=== PATIENT | male | born 1985 | race Two or more races ===

== ENCOUNTER 2024-04-29 11:45 | Emergency (ER) | payer MEDICAID, OTHER ==
[~2024-04-29] VITALS: Ht 172.7 cm; Wt 101.1 kg
[2024-04-29 13:04] VITALS: BP 125/74; PULSE 77; RESP 16; TEMP 98.5; O2SAT 96
[2024-04-29] MEDS ORDERED: NAPR-746 PO (13:39)
== END 2024-04-29 13:58 | disposition home or self-care (01) ==
LOC: ER 11:51
DX: M23.91 Unspecified internal derangement of right knee (principal); W18.39XA Other fall on same level, initial encounter; Y93.89 Activity, other specified; Y92.89 Other specified places as the place of occurrence of the external cause; Y99.8 Other external cause status
CPT/HCPCS: 29530; 73562

== ENCOUNTER 2024-07-02 07:49 | Emergency (ER) | payer MEDICAID ==
[~2024-07-02] VITALS: Ht 172.7 cm; Wt 103.4 kg
[~2024-07-02 07:49] MED LIST: NAPR-746 PO
[2024-07-02 08:07] VITALS: BP 154/69; PULSE 87; RESP 16; TEMP 98.5; O2SAT 97
[2024-07-02] MEDS: cefTRIAXone 2GM/50ML D5W 50 ML IV ONE (08:54)
[2024-07-02 09:16] LABS: Basophils # (auto) 0 10 ^3/uL (0-0.2); Basophils % (auto) 0.6 % (0.0-2.0); Eosinophils # (auto) 0.2 10 ^3/uL (0-0.8); Eosinophils % (auto) 2.6 % (0.0-7.0); Hematocrit 43.6 % (41.0-53.0); Hemoglobin 15.4 g/dL (13.5-17.5); Lymphocytes # (auto) 1.5 10 ^3/uL (0.4-5.4); Lymphocytes % (auto) 18.7 % (10.0-50.0); Mean Corpuscular Hemoglobin 31.8 pg (28.0-32.0); Mean Corpuscular Hgb Conc. 35.4 g/dL (32.0-36.0); Mean Corpuscular Volume 89.7 fL (80.0-100.0); Monocytes # (auto) 0.7 10 ^3/uL (0-1.3); Monocytes % (auto) 9.4 % (0.0-12.0); Neutrophils # (auto) 5.4 10 ^3/uL (1.6-8.6); Neutrophils % (auto) 68.7 % (37.0-80.0); Platelet Count (auto) 246 10^3/uL (140-450); Red Blood Cells 4.86 10^6/uL (4.5-5.90); Red Cell Distribution Width 12.3 % (11.8-14.3); White Blood Cell 7.8 10^3/uL (4.4-10.8)
[2024-07-02 09:22] LABS: Chloride 107 mmol/L (98-107); Potassium 3.9 mmol/L (3.5-5.1); Sodium 138 mmol/L (136-145)
[2024-07-02 09:23] LABS: Anion Gap 8 (5-15); Carbon Dioxide 23 mmol/L (20-31)
[2024-07-02 09:24] LABS: Calcium 9.3 mg/dL (8.7-10.4)
[2024-07-02 09:28] LABS: BUN/Creatinine Ratio 10.9 (10.0-20.0); Blood Urea Nitrogen 10 mg/dL (9-23); Glucose 121 mg/dL (74-106)
[2024-07-02] MEDS: IOHEXOL 300 MG/ML 100ML BOTTLE IJ ONE (09:45)
== END 2024-07-02 10:58 | disposition left against medical advice (07) ==
LOC: ER 07:49
DX: K08.89 Other specified disorders of teeth and supporting structures (principal); Z85.47 Personal history of malignant neoplasm of testis
CPT/HCPCS: 36415; 70488; 80048; 85025; 96365; 96366; 99285; J0696; Q9967